=== PATIENT | male | born 1960 | race Caucasian/White ===

== ENCOUNTER → 2025-06-06 | Outpatient (CLI) | payer OTHER ==
[~2025-06-06] MED LIST: HYDACE10B PO; IBUP800; META800 PO; ONDA8 PO; OXYACE5T PO; RXHYOS.125 PO; TAMS.4ER PO
== END ==
LOC: LAB 15:22 → LAB SHORT 15:22
DX: L98.9 Disorder of the skin and subcutaneous tissue, unspecified (principal)
CPT/HCPCS: 87102